=== PATIENT | female | born 1975 | race American Indian/Alaskan Native ===

== ENCOUNTER → 2019-10-16 | Emergency (ER) | payer SELFPAY ==
[~2019-10-16] MED LIST: DIPHtheria,PERTUSSIS(ACELL),TETANUS VACCINE/PF 0.5 ML VIAL IM ONE; IBUPROFEN 600 MG TAB PO ONE; LIDOCAINE-MPF (1%) 10 MG/1 ML VIAL 5 ML INFILTRATI ONE
--- NOTE | 2019-10-16 05:52 | Emergency Department Report ---
ED Lower Extremity HPI - General Chief Complaint: Wound/Laceration Stated Complaint: RT LEG INJURY (CUT) Source: patient Mode of arrival: Wheelchair Limitations: No Limitations - History of Present Illness Initial Comments: Patient is a 44-year-old -[place] female with no past medical history except hypertension presents to the ED with complaint of acute onset persistent painful bleeding posterior right calf laceration after a bag she was carrying with metallic object in it scratched her posterior right lower leg causing extensive bleeding laceration about 4 hours ago. Patient states that she is not up-to-date with tetanus vaccination. Patient states that the bleeding is not well controlled at this time. Patient denies numbness and tingling or weakness of right lower leg, dizziness, lightheadedness, nausea, vomiting, chest pain, shortness of breath, change in vision, syncope, fall or heavy lifting. MD Complaint: leg injury (posterior right thigh laceration wound with bleeding and pain) -: Sudden, hour(s) (4) Injury: Leg: Right (posterior right calf bleeding laceration) Type of Injury: laceration Place: home Severity: severe Severity scale (0 -10): 7 Improves With: nothing Worsens With: weight bearing, movement, palpation Context: walking ( metal cut right calf when carrying container with metallic stuff) Other Symptoms: loss of consciousness Associated Symptoms: snap/pop sensation, ambulatory. denies: swelling, numbness, tingling, unable to bear weight - Related Data Previous Rx's Medication Instructions Recorded Last Taken Type Ibuprofen [Motrin] 600 mg PO Q8H PRN #20 tablet 10/16/19 Unknown Rx cephALEXin [Keflex] 500 mg PO Q8HR #30 cap 10/16/19 Unknown Rx Allergies Allergy/AdvReac Type Severity Reaction Status Date / Time No Known Allergies Allergy Unverified 10/16/19 01:37 ED Review of Systems ROS: Stated complaint: RT LEG INJURY (CUT) Other details as noted in HPI Constitutional: denies: chills, fever Eyes: denies: eye pain, eye discharge, vision change ENT: denies: ear pain, throat pain Respiratory: denies: cough, shortness of breath, wheezing Cardiovascular: denies: chest pain, palpitations Endocrine: no symptoms reported Gastrointestinal: denies: abdominal pain, nausea, diarrhea Genitourinary: denies: urgency, dysuria, discharge Musculoskeletal: arthralgia (Posterior right lower leg pain due to a bleeding laceration), myalgia. denies: back pain, joint swelling Skin: other (Posterior bleeding right lower leg laceration). denies: rash, lesions Neurological: denies: headache, weakness, paresthesias Psychiatric: denies: anxiety, depression Hematological/Lymphatic: denies: easy bleeding, easy bruising ED Past Medical Hx - Past Medical History Hx Hypertension: Yes - Surgical History Past Surgical History?: Yes Additional Surgical History: - Social History Smoking Status: Current Some Day Smoker Substance Use Type: Alcohol - Medications Home Medications: Home Medications Medication Instructions Recorded Confirmed Last Taken Type Ibuprofen [Motrin] 600 mg PO Q8H PRN #20 tablet 10/16/19 Unknown Rx cephALEXin [Keflex] 500 mg PO Q8HR #30 cap 10/16/19 Unknown Rx ED Physical Exam - General Limitations: No Limitations General appearance: alert, in no apparent distress - Head Head exam: Present: atraumatic, normocephalic, normal inspection - Eye Eye exam: Present: normal appearance, PERRL, EOMI Pupils: Present: normal accommodation - ENT ENT exam: Present: normal exam, normal orophraynx, mucous membranes moist, TM's normal bilaterally, normal external ear exam - Neck Neck exam: Present: normal inspection, full ROM - Respiratory Respiratory exam: Present: normal lung sounds bilaterally. Absent: respiratory distress, wheezes, rales, rhonchi, stridor, chest wall tenderness, accessory muscle use, decreased breath sounds, prolonged expiratory - Cardiovascular Cardiovascular Exam: Present: regular rate, normal rhythm, normal heart sounds. Absent: systolic murmur, diastolic murmur, rubs, gallop - GI/Abdominal GI/Abdominal exam: Present: soft, normal bowel sounds. Absent: tenderness, guarding, rebound, hyperactive bowel sounds, hypoactive bowel sounds - Extremities Exam Extremities exam: Present: normal inspection, full ROM, tenderness (Palpable moderate tenderness of right lower leg due to bleeding 6 cm laceration), normal capillary refill - Back Exam Back exam: Present: normal inspection, full ROM. Absent: tenderness, muscle spasm, paraspinal tenderness - Neurological Exam Neurological exam: Present: alert, oriented X3, CN II-XII intact, normal gait, reflexes normal - Psychiatric Psychiatric exam: Present: normal affect, normal mood - Skin Skin exam: Present: warm, dry, intact, normal color, other (Bleeding 6 cm laceration on posterior right lower leg). Absent: rash ED Course Vital Signs 10/16/19 01:29 Temperature 97.8 F Pulse Rate 77 Respiratory 18 Rate Blood Pressure 162/99 O2 Sat by Pulse 99 Oximetry - Laceration /Wound Repair Right Posterior Calf Wound Location: lower extremity (Posterior right calf) Wound Length (cm): 6 Wound's Depth, Shape: superficial, linear Wound Explored: contaminated Irrigated w/ Saline (ccs): 100 Betadine Prep?: No Anesthesia: 1% Lidocaine Volume Anesthetic (ccs): 10 Wound Debrided: extensive Wound Repaired With: sutures Suture Size/Type: 3:0, proline Number of Sutures: 14 Layer Closure?: No Sterile Dressing Applied?: Yes Progress: Patient tolerated the procedure well. Patient was discharged home on pain medication and prophylactic antibiotics and advised to follow-up with her primary care physician in 7 to 10 days for reevaluation or return to the ED immediately if symptoms get worse. Patient was also advised to return to the ED in 12 to 14 days for suture removal. ED Lower Extremity MDM - Medical Decision Making This is a 44-year-old -[place] female with no past medical history exc ept hypertension presents to the ED with complaint of acute onset persistent painful bleeding posterior right calf laceration after a bag she was carrying with metallic object in it scratched her posterior right lower leg causing extensive bleeding laceration about 4 hours ago. Patient states that she is not up-to-date with tetanus vaccination. Patient states that the bleeding is not well controlled at this time. In the ED, patient is alert and oriented x3 and is not in distress. Patient was treated for pain in the ED and also received booster tetanus vaccination in the ED. The posterior right lower leg laceration was cleaned thoroughly and after application of local anesthetic lidocaine 1% solution, the wound was sutured per protocol and the patient tolerated the procedure well. Patient was discharged home on pain medication and prophylactic antibiotics and advised to follow-up with her primary care physician in 7 to 10 days for reevaluation. Patient was also advised return to the ED immediately if symptoms get worse. Otherwise the patient was advised to return to the ED or to her primary care physician in 12 to 14 days for suture removal. - Differential Diagnosis Laceration; Muscle strain; Puncture wound; Leg injury Critical care attestation.: If time is entered above; I have spent that time in minutes in the direct care of this critically ill patient, excluding procedure time. ED Disposition Clinical Impression: Laceration of right lower leg without foreign body Qualifiers: Encounter type: initial encounter Qualified Code(s): S81.811A - Laceration without foreign body, right lower leg, initial encounter Disposition: TO HOME OR SELFCARE Is pt being admited?: No Does the pt Need Aspirin: No Condition: Stable Instructions: Laceration (ED), Suture Care (ED) Additional Instructions: Take medication with food, drink plenty fluids and follow-up with your primary care physician in 7 to 10 days for reevaluation. Return to the ED immediately if symptoms get worse. Otherwise return to the ED in 12 to 14 days for suture removal. Prescriptions: cephALEXin [Keflex] 500 mg PO Q8HR #30 cap Ibuprofen [Motrin] 600 mg PO Q8H PRN #20 tablet PRN Reason: Pain Referrals: [facility] [Provider Group] - 7-10 days Time of Disposition: 05:51 Print Language: EGYPTIAN
== END | disposition home or self-care (01) ==
LOC: ED 01:24
PROC: 0HQLXZZ Repair Left Lower Leg Skin, External Approach (ICD-10-PCS; principal; 2019-10-16)
DX: S81.811A Laceration without foreign body, right lower leg, initial encounter (principal); I10 Essential (primary) hypertension; Z79.899 Other long term (current) drug therapy; W26.8XXA Contact with other sharp object(s), not elsewhere classified, initial encounter; Y93.89 Activity, other specified; Y92.89 Other specified places as the place of occurrence of the external cause; Y99.8 Other external cause status
CPT/HCPCS: 90471; 90715; 99282